=== PATIENT | male | born 1955 | race Caucasian/White ===

== ENCOUNTER → 2016-10-14 | Outpatient (CLI) | payer OTHER ==
[~2016-10-14] MED LIST: ARTHRITIS MED; ASPIRIN81 M1 PO; BAYER ASPIRIN325 M1 PO; BYSTOLIC5 MG PO; COREG6.25 MG PO; ENALAPRIL MALEA10 MG PO; FISH OIL 1,0001 EAC1; KEFLEX500 M1 PO; MULTIVITAMIN1 UDCAP PO; NEXIUM PO; PRILOSEC PO; VASOTEC PO; VASOTEC10 MG PO; VICODIN 5/500 T1 TAB PO; VICODIN PO; VOLTAREN75 MG PO; XARELTO20 MG PO
--- NOTE | ~2016-10-14 | EKG ---
PATIENT: RODRIGO MARSHALL UNIT #: [id number] Ventricular Rate: 53 BPM Atrial Rate: 53 BPM P-R Interval: 188 ms QRS Duration: 116 ms Q-T Interval: 436 ms QTC Calculation(Bezet): 409 ms P [place]: 18 degrees Calculated R [place]: 41 degrees Calculated T [place]: 48 degrees Diagnosis Line: Sinus bradycardia Diagnosis Line: Left ventricular hypertrophy with QRS widening Diagnosis Line: Abnormal ECG Diagnosis Line: When compared with ECG of 03-JUN-2013 05:56, Diagnosis Line: No significant change was found Diagnosis Line: Confirmed by BRINDA MCNULTY MD ([id number]) on Diagnosis Line: 10/15/2016 8:29:16 AM INTERPRETING MD: HAMLET HUBBARD
[2016-10-14 11:39] LABS: BUN/CREATININE RATIO 17.27; CALCIUM SERUM 9.1 mg/dL (8.4-10.2); CREATININE SERUM 1.1 mg/dL (0.6-1.4); GLOM FILT RATE Estimated 71.1 mL/min (>60); POTASSIUM 4.4 mmol/L (3.5-5.1)
== END | disposition home or self-care (01) ==
LOC: CAMB 09:41
PROVIDERS: Orthopaedic Surgery
DX: Z01.818 Encounter for other preprocedural examination (principal); M21.531 Acquired clawfoot, right foot
CPT/HCPCS: 36415; 80048; 93005

== ENCOUNTER → 2016-10-21 | Day surgery (SDC) | payer OTHER ==
--- NOTE | ~2016-10-21 | OR ---
Unit #: [id number] #: [id number] Patient: RODRIGO MARSHALL [id number] [address] [place], [place] [address] [id number] O MR#: [id number] NAME: RODRIGO MARSHALL ROOM: Date of Procedure: 10/21/2016 Admission Date: 10/21/2016 Surgeon: Candelario Disla M.D. : 1955 Attending Physician: Candelario Disla M.D. Referring Physician: Candelario Disla M.D. Primary Care Physician: Guille Machuca D.O. OPERATIVE REPORT PREOPERATIVE DIAGNOSIS Right clawed hallux. POSTOPERATIVE DIAGNOSIS Right clawed hallux. PROCEDURE PERFORMED Right Morris procedure with hallux interphalangeal joint fusion and transfer of extensor hallucis longus tendon to first metatarsal neck ([id number]). ASSISTANTS Teo Bishop; Teo Guzman; Janell LanePRamiro ANESTHESIA Ankle block and general. INDICATIONS FOR SURGERY The patient is a 61-year-old male, who has undergone previous right ankle osteophyte and loose body excision arthroscopically 4 years ago. He now presents with clawing of the hallux which is symptomatic causing first metatarsalgia and pain over his clawed interphalangeal joint. The patient has failed conservative care and is therefore to undergo Morris procedure. DESCRIPTION OF PROCEDURE The patient was taken to the operating room, placed in a supine position, and general anesthetic was induced. The right foot was identified as the correct operative extremity during the time-out procedure. The IV antibiotic protocol was followed. The right ankle block was then performed using a mixture of 1% plain Xylocaine and 0.5% plain Marcaine. The right leg was then prepped and draped in the usual sterile fashion. The leg was exsanguinated and the thigh tourniquet inflated to 300 mmHg. An 8-cm dorsal longitudinal incision was made over the first metatarsal crossing at the interphalangeal joint in a transverse fashion. The subcutaneous tissue was carefully divided. The extensor hallucis longus tendon sheath was opened and the tendon was dissected down to the interphalangeal joint. The tendon was then sharply excised off the distal phalangeal base. The interphalangeal joint was then opened and the microsagittal saw was used to remove the articular cartilage from both sides of the interphalangeal joint. Both sides of the joint were then drilled with a Unit #: [id number] #: [id number] Patient: RODRIGO MARSHALL 0.062-inch diameter smooth K-wire to stimulate bone healing. The guide pin was then drilled through the middle of the distal phalanx and out of the tip of the toe. It was then reversed across the interphalangeal joint to hold the interphalangeal joint in corrected position. A small stab incision was made at the tip of the toe and the countersink was used. An OrthoHelix 4.0 mm diameter cannulated screw was then drilled into place and tightened by hand. The K-wire was removed. A 2.4 mm diameter drill bit was used to make 2 converging holes in the dorsal medial and dorsal lateral aspect of the first metatarsal neck. The holes were connected with a small curette. The suture retriever was then used to pass the free end of the extensor hallucis longus tendon which had been tagged with a 2-0 Vicryl, through the 2 holes in the first metatarsal neck. The tendon was then pulled tightly and then sutured to itself with multiple 2-0 FiberWire [id number] sutures. An excellent correction was obtained. All wounds were copiously irrigated. Tourniquet was released with a total tourniquet time of 45 minutes. Subcutaneous tissue was closed with 3-0 Vicryl. The skin was closed with 3-0 nylon horizontal mattress sutures. Xeroform gauze, dressing, sponges, Webril, Stuart wrap, and postoperative shoe were placed. The patient was then transported to the recovery room in stable condition. ESTIMATED BLOOD LOSS Minimal. COMPLICATIONS None. SPECIMENS None. TOURNIQUET TIME 45 minutes. Dictated by.Teo Tijerina/roel TD: 10/22/2016 01:29 JOB #: [id number] OPERATIVE REPORT Page 1 of 1 X Bob Disla MD X PROCEDURE OPERATIVE NOTE
--- NOTE | ~2016-10-21 | HP ---
Unit #: [id number] #: [id number] Patient: RODRIGO MARSHALL [id number] [address] [address] [id number] P MR#: [id number] NAME: RODRIGO MARSHALL ROOM: Age: 61 Sex: M Admission Date: 10/21/2016 : 1955 Attending Physician: Candelario Disla M.D. Referring Physician: Candelario Disla M.D. Primary Care Physician: Guille Machuca D.O. HISTORY AND PHYSICAL CHIEF COMPLAINT Clawing of right great toe. HISTORY OF PRESENT ILLNESS This 56-year-old male presents with worsening clawing of his right hallux. He had undergone right ankle arthroscopy with removal of a distal tibial spur and loose body excision four years ago. He now has worsening clawing of the hallux which is symptomatic. He is, therefore, admitted for fusion of the IP joint with transfer of the EHL to the first metatarsal neck. He also has a mild cavus deformity. PAST MEDICAL HISTORY 1. Rheumatoid arthritis. 2. Hypertension. 3. Acid reflux disease. 4. Atrial fibrillation. PAST SURGICAL HISTORY 1. Left knee replacement. 2. Left ankle replacement. 3. Right ankle arthroscopy. SOCIAL HISTORY The patient does not smoke or drink. He is retired. FAMILY HISTORY Hypertension, heart disease. ALLERGIES Morphine. HOME MEDICATIONS 1. Aspirin. 2. Atorvastatin. 3. Carvedilol. 4. Enalapril. 5. Fish oil. 6. Hydrocodone. 7. Metformin. 8. Ibuprofen. 9. Sumatriptan. 10. Xarelto. 11. Viagra. 12. Valacyclovir. Unit #: [id number] #: [id number] Patient: RODRIGO MARSHALL REVIEW OF SYSTEMS Unremarkable. PHYSICAL EXAMINATION GENERAL: The patient is an obese male in no acute distress. VITALS: Height 6'2", weight 250 pounds. HEENT: Pharynx is clear. NECK: Supple without masses. LUNGS: Clear. HEART: Regular sinus rhythm without murmurs or gallops. ABDOMEN: soft and nontender without masses or organomegaly. EXTREMITIES: Evaluation of the right foot shows slight cavus of the arch with a normal heel. Ankle and subtalar motion are normal. The patient has hyper extension of the first metatarsal phalangeal joint with flexion of the interphalangeal joint. He has fixed clawing of the hallux with tightness of the extensor hallucis longus tendon. Pulses are normal. Sensation is normal. Motor exam is normal. DIAGNOSTIC STUDIES IMAGING: Standing x-rays of the right foot show minimal arthritic change of the first MTP joint with clawing of the hallux. ASSESSMENT Symptomatic right clawed hallux. PLAN The patient has failed conservative care. He will, therefore, undergo surgical correction. He will, therefore, undergo a Morris' procedure with transfer of the EHL tendon to the first metatarsal neck, interphalangeal joint effusion of the hallux, and transfer of the EHB to the EHL stump. This procedure was described in detail, along with diagram. The risks of the procedure were discussed to include bleeding, infection, nerve damage, need for further surgery in the future, prolonged recovery time, deep venous thrombosis, recurrent deformity. He understands the above risks and agrees to proceed with the treatment plan. Dictated by Teo De La Cruz/ale TD: 10/20/2016 08:29 JOB #: [id number] CC: Candelario Disla M.D. HISTORY AND PHYSICAL Page 1 of 1 X Bob Disla MD HISTORY AND PHYSICAL
== END | disposition home or self-care (01) ==
LOC: CSUR 07:30
DX: M20.5X1 Other deformities of toe(s) (acquired), right foot (principal); K21.9 Gastro-esophageal reflux disease without esophagitis; E11.9 Type 2 diabetes mellitus without complications; E66.9 Obesity, unspecified; I10 Essential (primary) hypertension; I48.91 Unspecified atrial fibrillation; M06.9 Rheumatoid arthritis, unspecified; Z68.33 Body mass index [BMI] 33.0-33.9, adult; Z79.82 Long term (current) use of aspirin; Z79.899 Other long term (current) drug therapy; Z88.5 Allergy status to narcotic agent; Z79.84 Long term (current) use of oral hypoglycemic drugs; Z96.652 Presence of left artificial knee joint; Z96.662 Presence of left artificial ankle joint; Z98.890 Other specified postprocedural states
CPT/HCPCS: 82947; J0690; J1100; J1885; J2250; J2405